=== PATIENT | male | born 1965 | race Caucasian/White ===

== ENCOUNTER 2017-01-06 04:45 | Emergency (ER) | payer BC ==
[2017-01-06] MEDS ORDERED: KETOROLAC 30 MG/ML VIAL IVP ONE (05:00)
[2017-01-06] MEDS ORDERED: 0.9 % SODIUM CHLORIDE 1000ML 1,000 ML IV SCH (05:00)
[2017-01-06] MEDS ORDERED: MORPHINE SULFATE 5 MG/ML PFS IVP ONE (05:00)
[2017-01-06] MEDS ORDERED: ONDANSETRON HCL IV 4 MG/2 ML VIAL IVP ONE (05:00)
--- NOTE | 2017-01-06 05:06 | Emergency Department Record ---
History of Present Illness - General Chief complaint: Flank Pain Stated complaint: FLANK PAIN Time Seen by Provider: 01/06/17 04:59 Source: Patient Mode of Arrival: Ambulatory Limitations: No limitations - History of Present Illness Initial comments: 51 yo male presents to ED for evaluation of left sided flank pain that began around 4 hours ago. Patient reports similar symptoms related to kidney stones previously, reports nausea and vomiting, denies fevers/chills or abdominal pain symptoms. MD Complaint: Other (flank pain) Onset/Timin -: Hour(s) Location: Left flank Radiation: Suprapubic, L flank, LLQ Severity: Severe Severity scale (1-10): 10 Quality: Sharp, Stabbing Consistency: Constant, Getting worse Improves with: None Reports: Nausea/vomiting - Related Data Sexually active: Yes Previous Rx's Medication Instructions Recorded Hydrocodone/Acetaminophen [[place] 1 each PO Q6H PRN #10 tablet 01/06/17 7.5-325 Tablet] Tamsulosin HCl [Flomax] 0.4 mg PO DAILY #15 cap.er.24h 01/06/17 Allergies Allergy/AdvReac Type Severity Reaction Status Date / Time No Known Allergies Allergy Unverified 10/31/16 14:22 Travel Screening - Travel/Exposure Within Last 30 Days Have you traveled within the last 30 days?: No - Travel Symptoms Symptom Screening: Fever (Subjective) Review of Systems Constitutional: Denies: Chills, Fever, Malaise, Night sweats Eyes: Denies: Eye discharge, Eye pain ENT: Denies: Congestion, Ear pain, Epistaxis Respiratory: Denies: Cough, Dyspnea Cardiovascular: Denies: Chest pain, Dyspnea on exertion Endocrine: Denies: Fatigue, Heat or cold intolerance Gastrointestinal: Reports: Nausea, Vomiting Genitourinary: Denies: Incontinence, Retention Musculoskeletal: Reports: Back pain. Denies: Arthralgia, Gout, Joint swelling Skin: Denies: Bruising, Change in color Neurological: Denies: Abnormal gait, Confusion, Headache, Seizure Psychiatric: Denies: Anxiety Hematological/Lymphatic: Denies: Anemia, Blood Clots Past Medical History - SOCIAL HISTORY Smoking Status: Never smoker Alcohol Use: None Drug Use: None - RESPIRATORY Hx Respiratory Disorders: No - CARDIOVASCULAR Hx Cardio Disorders: No Comment:: high cholesterol ~200 - NEURO Hx Neuro Disorders: No - GI Hx GI Disorders: No - Hx Genitourinary Disorders: Yes Hx Kidney Stones: Yes (x5, lithotripsy, stents) - ENDOCRINE Hx Endocrine Disorders: No - MUSCULOSKELETAL Hx Musculoskeletal Disorders: No - PSYCH Hx Psych Problems: No - HEMATOLOGY/ONCOLOGY Hx Hematology/Oncology Disorders: No Family Medical History Any Significant Family History?: Yes Hx Heart Disease: Father, Grandparents *Heart Comment: father of Heart attack at age 58 Physical Exam - General General Appearance: Alert, Oriented x3, Cooperative, Moderate distress, Other ( diaphoretic, appears in pain on examination) Limitations: No limitations - Head Head exam: Atraumatic, Normocephalic, Normal inspection Head exam detail: negative: Abrasion, Contusion, Barnett's sign, General tenderness, Hematoma, Laceration - Eye Eye exam: Normal appearance. negative: Conjunctival injection, Periorbital swelling, Periorbital tenderness, Scleral icterus - ENT Ear exam: negative: Auricular hematoma, Auricular trauma Nasal Exam: negative: Active bleeding, Discharge, Dried blood, Foreign body Mouth exam: negative: Drooling, Laceration, Muffled voice, Tongue elevation - Neck Neck exam: Normal inspection. negative: Meningismus, Tenderness - Respiratory Respiratory exam: Normal lung sounds bilaterally. negative: Rales, Respiratory distress, Rhonchi, Stridor - Cardiovascular Cardiovascular Exam: Regular rate, Normal rhythm, Normal heart sounds - GI/Abdominal GI/Abdominal exam: Soft. negative: Rebound, Rigid, Tenderness - Rectal Rectal exam: Deferred - exam: Deferred - Extremities Extremities exam: Normal inspection. negative: Calf tenderness, Pedal edema, Tenderness - Back Back exam: Reports: CVA tenderness (L). Denies: CVA tenderness (R) - Neurological Neurological exam: Alert, Normal gait, Oriented X3 - Psychiatric Psychiatric exam: Normal affect, Normal mood - Skin Skin exam: Normal color. negative: Abrasion Type of lesion: negative: abrasion Course Vital Signs 01/06/17 04:51 Temperature 97.4 F L Pulse Rate 67 Respiratory 20 Rate Blood Pressure 171/95 Pulse Ox 93 L - Reevaluation(s) Reevaluation #1: 01/06/17 05:44 Patient is back from CT imaging, reports that his pain symptoms are down to 2/ 10 from 12/02. A[address] CT imaging results. Labs reviewed and are grossly unremarkable for an acute process, UA pending. Reevaluation #2: 01/06/17 05:51 CT Abdomen and Pelvis: 5 mm calculus at the left UVJ, mild hydrnephrosis present. Reevaluation #3: 01/06/17 06:45 UA reviewed and appears negative for infection. Patient reports that he is pain -free and at this time and appears stable for discharge at this time. Medical Decision Making - Lab Data Result diagrams: 01/06/17 05:00 01/06/17 05:00 Disposition Disposition: Discharge Clinical Impression: Kidney stone on left side Disposition: Home, Self-Care Condition: (2) Stable Instructions: Flank Pain (ED) Additional Instructions: Return to ED if your symptoms worsen or if you have any concerns. Flomax and [place] as directed. Follow-up with your family doctor or Dr. Vallejo in 3-5 days as directed. Prescriptions: Hydrocodone/Acetaminophen [[place] 7.5-325 Tablet] 1 each PO Q6H PRN #10 tablet PRN Reason: Pain - Moderate (5-7) Tamsulosin HCl [Flomax] 0.4 mg PO DAILY #15 cap.er.24h Referrals: TERESA VALLEJO M.D. [MEDICAL DOCTOR] - [facility] [Provider Group] Forms: Patient Portal Access Time of Disposition: 06:46 Quality - Quality Measures Quality Measures: N/A - Blood Pressure Screening Does Patient Have Any of the Following: No Blood Pressure Classification: Hypertensive Reading Systolic Measurement: 171 Diastolic Measurement: 95 Screening for High Blood Pressure: < First Hypertensive BP, F/U Documented > [ G8950] First Hypertensive Follow-up Interventions: Referral to alternative/primary care provider.
[2017-01-06 05:11] LABS: BASO % 0.3 % (0-6); EOS % 0.5 % (0-6); GRAN % 73.1 % (47-80); HEMATOCRIT 40.6 % (42.0-52.0); LYMPH % 18.8 % (16-45); MEAN CELL VOLUME 91.2 fl (81-97); MEAN CORPUSCULAR HEMOGLOBIN 31.5 pg (27-33); MEAN CORPUSCULAR HGB CONC 34.5 g/dl (32-36); MONO % 7.3 % (0-9); PLATELET COUNT 254 K/uL (130-400); RED BLOOD COUNT 4.45 M/uL (4.40-5.70); RED CELL DISTRIBUTION WIDTH 12.9 % (11.5-14.5); WHITE BLOOD COUNT W/O DIFF 11.3 K/uL (4.2-12.2)
[2017-01-06 05:23] LABS: ALB/GLOB RATIO 1.6 (1.1-1.8); ALBUMIN 4.6 g/dL (4.0-5.0); ALKALINE PHOSPHATASE 62 U/L (40-129); ALT/SGPT 36 U/L (<41); AST/SGOT 29 U/L (10.0-50.0); BLOOD UREA NITROGEN 18 mg/dL (6-20); CREATININE 1.2 mg/dL (0.7-1.2); EST GLOMERULAR FILTRATION RATE > 60 mL/min; GLUCOSE,RANDOM 138 mg/dL (74-109); TOTAL PROTEIN 7.4 g/dL (6.6-8.7)
[2017-01-06 06:36] LABS: URINE APPEARANCE CLEAR; URINE BILIRUBIN SMALL (NEGATIVE); URINE BLOOD LARGE (NEGATIVE); URINE COLOR YELLOW; URINE GLUCOSE (UA) NEGATIVE (NEGATIVE); URINE KETONE 15 mg/dL (NEGATIVE); URINE LEUKOCYTE ESTERASE NEGATIVE (NEGATIVE); URINE NITRITE NEGATIVE (NEGATIVE); URINE PROTEIN NEGATIVE (NEGATIVE); URINE UROBILINOGEN 0.2 E.U./dL (0.20 - 1.00)
[2017-01-06 06:44] LABS: URINE BACTERIA NONE SEEN; URINE EPITHELIAL CELLS 0 - 2 (FEW); URINE WBC 0 - 2 (0-2/hpf)
[2017-01-06 06:45] LABS: URINE MUCUS LIGHT
--- NOTE | 2017-01-07 21:36 | CT SCAN REPORT ---
EXAM: CT SCAN ABDOMEN/PELVIS WO CONTRAST HISTORY: LEFT LOWER QUADRANT PAIN, FLANK PAIN. TECHNIQUE: Axial CT scan of the abdomen and pelvis performed without oral or IV contrast. Preliminary report provided by [facility]. COMPARISON: CT abdomen and pelvis 01/24/11. FINDINGS: No calcified gallstones are seen within the gallbladder. No intrarenal calculi seen on the right. There is at least one calculus within the left kidney, currently nonobstructing. However, in addition there is mild hydronephrosis and hydroureter on the left with the mildly dilated left ureter followed down into the pelvis, where it becomes contiguous with an approximately 3.3 mm calcification in the lower left ureter just before the left UVJ consistent with a distal left ureteral calculus causing a component of obstruction on the left. There is no hydronephrosis or hydroureter on the right with no right ureteral calculus seen and no actual bladder calculus evident. There is some soft tissue standing in the perirenal space on the left, which is new from the prior study and is a nonspecific finding commonly seen with acute urinary tract obstruction. Evaluation of the bowel and viscera is very limited without oral or IV contrast. Given this limitation, no definite hepatic, splenic, adrenal, pancreatic, or renal mass identified. There appear to be bilateral inguinal hernias containing adipose tissue but no bowel. Moderate diverticulosis of the sigmoid colon but no diverticulitis evident. Appendix seen and it is of normal size with no appendicitis evident. No free intraperitoneal air or free intraperitoneal fluid evident. Some hypertrophic spurring in the lower thoracic spine. IMPRESSION: 1. APPROXIMATELY 3.3 MM DISTAL LEFT URETERAL CALCULUS CAUSING A COMPONENT OF OBSTRUCTION. 2. THERE IS ALSO A SMALL NONOBSTRUCTING CALCULUS WITHIN THE LEFT KIDNEY ITSELF. 3. DIVERTICULOSIS OF THE SIGMOID COLON BUT NO DIVERTICULITIS EVIDENT. 4. APPENDIX APPEARS NEGATIVE. NO FREE AIR OR FREE FLUID EVIDENT. 5. SMALL BILATERAL INGUINAL HERNIAS CONTAINING ADIPOSE TISSUE BUT NO BOWEL. JOB NUMBER: [id number] [facility]
== END 2017-01-06 06:57 | disposition home or self-care (01) ==
LOC: ER 04:45
DX: N13.2 Hydronephrosis with renal and ureteral calculous obstruction (principal); R10.32 Left lower quadrant pain; R11.2 Nausea with vomiting, unspecified; Z87.442 Personal history of urinary calculi
CPT/HCPCS: 74176; 80053; 81001; 85025; 96361; 96374; 96375; 99284; J1885; J2405; J7030

== ENCOUNTER 2017-02-13 09:26 | Day surgery (SDC) | payer BC ==
[2017-02-13] MEDS ORDERED: LIDOCAINE 2% MDV (20MG/ML) 20ML VIAL IV ONE (09:27)
[2017-02-13] MEDS ORDERED: PROPOFOL 10 MG/ML VIAL IV ONE (09:27)
--- NOTE | 2017-02-17 10:30 | Operative Note ---
DATE OF SURGERY: 02/13/2017 SURGEON: Lucian Puente MD OPERATION: COLONOSCOPY. INDICATIONS: This is a 51-year-old male with average risk for colorectal cancer who presented for screening colonoscopy. POSTOPERATIVE DIAGNOSES: 1. Left-sided colonic diverticulosis. 2. Two 2-3 mm sessile rectal polyps that were removed by cold biopsy forceps. ANESTHESIA: Sedation is per Anesthesia. Pulse oximetry was monitored throughout the procedure to maintain O2 saturation of 90% or greater. Supplemental oxygen was administered via nasal cannula. Cardiac and vital signs were monitored throughout the duration of the procedure, and they were stable. The procedure of colonoscopy and risks and alternatives of the procedure, including the risk of bleeding and perforation, among others, were explained to the patient who voiced understanding and agreed to have the procedure done. Physical examination was performed, and the patient was found stable for sedation. PROCEDURE: The patient was placed in the left lateral position. Sedation was initiated. A digital rectal exam was performed and showed some mild external hemorrhoids with no palpable rectal masses. An Olympus PCF-180AL colonoscope was then inserted into the rectum under direct visualization. It was advanced to the cecum without difficulty. The ileocecal valve and appendiceal orifice were identified and photographed. The colonic mucosa was carefully examined upon introduction of the colonoscope. There were scattered diverticula noted in the sigmoid and descending colon. The rest of the colonic mucosa appeared normal. The colonoscope was then withdrawn while carefully examining the colonic mucosal surfaces. The bowel preparation was good. The cecum, ascending colon, transverse colon, descending colon, and sigmoid colon mucosa revealed no other lesions. In the rectum, there were two 2-3 mm sessile polyps that were noted and they were removed by cold biopsy forceps. There were no other lesions. The colonoscope was then withdrawn and the procedure was terminated. The patient tolerated the procedure well without any immediate complications. He remained with stable vital signs and was transferred to the recovery room. RECOMMENDATIONS: 1. The patient should be on a high-fiber diet. 2. The patient is to have a repeat colonoscopy for surveillance in about 5 or 10 years depending on the histology of the polyps. Thank you for allowing me to participate in the care of your patient. CC: Dr. Klaudia TO
== END 2017-02-13 12:24 | disposition home or self-care (01) ==
LOC: HOP 09:26
PROVIDERS: ATTEND Internal Medicine Gastroenterology
DX: Z12.11 Encounter for screening for malignant neoplasm of colon (principal); D12.8 Benign neoplasm of rectum; K57.30 Diverticulosis of large intestine without perforation or abscess without bleeding; I10 Essential (primary) hypertension; E78.00 Pure hypercholesterolemia, unspecified

== ENCOUNTER 2017-03-22 10:10 | Emergency (ER) | payer BC ==
--- NOTE | 2017-03-22 10:43 | Emergency Department Record ---
History of Present Illness - General Chief complaint: ENT Stated complaint: EAR PAIN Time Seen by Provider: 03/22/17 10:32 Source: Patient Mode of Arrival: Ambulatory Limitations: No limitations - History of Present Illness Initial comments: pt has had cough and congestion for a month and now has a l earache that feels like he has fluid behind the eardrum. complaint: Ear pain Onset/Timin -: Days(s) Severity scale (1-10): 6 Quality: Aching Consistency: Constant Context- Ear: Recent illness - Related Data Previous Rx's Medication Instructions Recorded Amoxicillin/Potassium Clav 1 tab PO BID #20 tablet 03/22/17 [Augmentin 875Mg/125Mg] Allergies Allergy/AdvReac Type Severity Reaction Status Date / Time No Known Allergies Allergy HYPERSENSIT Verified 03/22/17 10:24 IVITY Travel Screening - Travel/Exposure Within Last 30 Days Have you traveled within the last 30 days?: No - Travel/Exposure Within Last Year Have you traveled outside the [place] in the last year?: No - Additonal Travel Details Have you been exposed to anyone with a communicable illness?: No - Travel Symptoms Symptom Screening: None Review of Systems Reviewed: No additional complaints except as noted below Constitutional: Reports: As per HPI. Denies: Chills, Fever, Malaise, Night sweats, Weakness, Weight change Eyes: Reports: As per HPI. Denies: Eye discharge, Eye pain, Photophobia, Vision change ENT: Reports: As per HPI, Congestion, Ear pain, Throat pain. Denies: Dental pain, Epistaxis, Hearing loss Respiratory: Reports: As per HPI, Cough. Denies: Dyspnea, Hemoptysis, Stridor, Wheezes Cardiovascular: Reports: As per HPI. Denies: Arrhythmia, Chest pain, Dyspnea on exertion, Edema, Murmurs, Orthopnea, Palpitations, Paroxysmal nocturnal dyspnea, Rheumatic Fever, Syncope Endocrine: Reports: As per HPI. Denies: Fatigue, Heat or cold intolerance, Polydipsia, Polyuria Gastrointestinal: Reports: As per HPI. Denies: Abdominal pain, Constipation, Diarrhea, Hematemesis, Hematochezia, Melena, Nausea, Vomiting Genitourinary: Reports: As per HPI. Denies: Dysuria, Frequency, Hematuria, Incontinence, Retention, Testicular pain, Testicular mass, Urgency Musculoskeletal: Reports: As per HPI. Denies: Arthralgia, Back pain, Gout, Joint swelling, Myalgia, Neck pain Skin: Reports: As per HPI. Denies: Bruising, Change in color, Change in hair/ nails, Lesions, Pruritus, Rash Neurological: Reports: As per HPI. Denies: Abnormal gait, Confusion, Headache, Numbness, Paresthesias, Seizure, Tingling, Tremors, Vertigo, Weakness Psychiatric: Reports: As per HPI. Denies: Anxiety, Auditory hallucinations, Depression, Homicidal thoughts, Suicidal thoughts, Visual hallucinations Hematological/Lymphatic: Reports: As per HPI. Denies: Anemia, Blood Clots, Easy bleeding, Easy bruising, Swollen glands Past Medical History - SOCIAL HISTORY Smoking Status: Never smoker Alcohol Use: Rare Drug Use: None - RESPIRATORY Hx Respiratory Disorders: No - CARDIOVASCULAR Hx Cardio Disorders: No Hx Hypertension: Yes - NEURO Hx Neuro Disorders: No - GI Hx GI Disorders: No - Hx Genitourinary Disorders: Yes Hx Kidney Stones: Yes (x5, lithotripsy, stents) - ENDOCRINE Hx Endocrine Disorders: No - MUSCULOSKELETAL Hx Musculoskeletal Disorders: No Hx Arthritis: Yes (bilat knees) - PSYCH Hx Psych Problems: No - HEMATOLOGY/ONCOLOGY Hx Hematology/Oncology Disorders: No Family Medical History Any Significant Family History?: Yes Hx Heart Disease: Father, Grandparents *Heart Comment: father of Heart attack at age 58 Physical Exam - General General Appearance: Alert, Oriented x3, Cooperative, Mild distress - Head Head exam: Normal inspection - Eye Eye exam: Normal appearance, PERRL, EOMI Pupils: Normal accommodation - ENT ENT exam: Normal exam, Mucous membranes moist, Normal external ear exam, Normal orophraynx, Other (l tm has erythema and bulla ) Ear exam: Normal external inspection. negative: External canal tenderness Nasal Exam: Normal inspection. negative: Discharge, Sinus tenderness Mouth exam: Normal external inspection, Tongue normal Teeth exam: Normal inspection. negative: Dental caries Throat exam: Normal inspection. negative: Tonsillar erythema, Tonsillar exudate - Neck Neck exam: Normal inspection, Full ROM. negative: Tenderness - Respiratory Respiratory exam: Normal lung sounds bilaterally. negative: Respiratory distress - Cardiovascular Cardiovascular Exam: Regular rate, Normal rhythm, Normal heart sounds - GI/Abdominal GI/Abdominal exam: Soft, Normal bowel sounds. negative: Tenderness - Rectal Rectal exam: Deferred - exam: Deferred - Extremities Extremities exam: Normal inspection, Full ROM, Normal capillary refill. negative: Tenderness - Back Back exam: Reports: Normal inspection, Full ROM. 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 return sooner if worse Prescriptions: Amoxicillin/Potassium Clav [Augmentin 875Mg/125Mg] 1 tab PO BID #20 tablet Quality - Quality Measures Quality Measures: N/A - Blood Pressure Screening Does Patient Have Any of the Following: No Blood Pressure Classification: Hypertensive Reading Systolic Measurement: 130 Diastolic Measurement: 92 Screening for High Blood Pressure: < Pre-Hypertensive BP, F/U Documented > [ G8950] Pre-Hypertensive Follow-up Interventions: Follow-up with rescreen every year.
== END 2017-03-22 11:05 | disposition home or self-care (01) ==
LOC: ER 10:10
DX: H73.012 Bullous myringitis, left ear (principal); R05 Cough; I10 Essential (primary) hypertension
CPT/HCPCS: 99282